=== PATIENT | male | born 1945 | race Caucasian/White ===

== ENCOUNTER 2018-08-21 13:47 | Outpatient (CLI) | payer MEDICARE | END 2018-08-21 23:59 | disposition home or self-care (01) | LOC: PETCFH 13:47 | PROVIDERS: ATTEND Physician Assistant | DX: C61 Malignant neoplasm of prostate (principal); R97.21 Rising PSA following treatment for malignant neoplasm of prostate; G95.89 Other specified diseases of spinal cord; I71.4 Abdominal aortic aneurysm, without rupture; I25.10 Atherosclerotic heart disease of native coronary artery without angina pectoris; Z92.3 Personal history of irradiation | CPT/HCPCS: 78815; A9588 ==